=== PATIENT | female | born 1975 | race Caucasian/White ===

== ENCOUNTER 2021-09-04 22:33 | Emergency (ER) | payer MEDICAID, SELFPAY ==
[2021-09-04 22:34] VITALS: BP 145/91; PULSE 109; RESP 18; TEMP 36.4; O2SAT 97; BMI 37.3
--- NOTE | 2021-09-04 23:08 | EDS_ITS ---
HPI History of Present Illness Chief Complaint: Cold Sx Informant: patient Onset/Context/Timing Onset: Weeks (2 weeks) Current Severity: Mild Maximum Severity: Moderate Narrative Narrative: Patient presents secondary to sore throat and sinus congestion. She reports that she was diagnosed with Covid in early July. She is off quarantine. She states following this she developed significant sinus tenderness and she was taking Sudafed. She continues to have some sinus drainage and sore throat. No fever or chills currently. Mild cough with yellow sputum. [facility] Medical History (Updated 09/04/21 @ 23:[address] Tatianna Lynn MD) Asthma Diabetes mellitus, type II High cholesterol Home Medications amoxicillin-pot clavulanate [Augmentin] 1 tab PO BID #20 tab 09/04/21 [Rx Last Taken Unknown] fluconazole [Diflucan] 150 mg PO DAILY #1 tab 09/04/21 [Rx Last Taken Unknown] Allergy/AdvReac Type Severity Reaction Status Date / Time No Known Allergies Allergy Verified 09/04/21 23:26 Social History Smoking Status: Current every day smoker tobacco type: cigarettes ROS ROS ED Constitutional Constitutional ED: Denies chills or fever(s) Eyes Eyes: Denies change in vision ENT ENT ED: Reports sore throat and other Details: Sinus pressure Cardiovascular Cardiovascular: Denies chest pain Respiratory/Chest Respiratory/Chest: Reports cough; Denies dyspnea Gastrointestinal Gastrointestinal: Denies abdominal pain, diarrhea, nausea or vomiting Genitourinary Genitourinary ED: Denies dysuria Musculoskeletal Musculoskeletal: Denies back pain Integumentary Denies rash Neurologic Neurologic: Denies headache(s) or weakness Allergic/Immunologic Allergic/Immunologic ED: Denies urticaria EXAM Physical Exam Const Vital Signs: 09/04/21 22:34 09/04/21 23:27 Temperature 97.6 F L Temperature Source Temporal Pulse Rate 109 H Respiratory Rate 18 Respiratory Effort Normal Non-Labored Respiratory Pattern Normal Blood Pressure 145/91 H Blood Pressure Mean 109 Pulse Ox 97 Oxygen Delivery Method Room Air Positive well nourished and well developed General Appearance ED: well developed HEENT Reports normocephalic, head/scalp atraumatic and TM's clear HEENT Narrative: Bilateral maxillary sinus tenderness to palpation. Mild posterior pharyngeal drainage. Uvula midline. Tympanic Membrane ED: Yes TM's clear Eyes PERRL and EOMs intact bilaterally Neck supple Chest Wall inspection of chest normal and palpation of chest normal Resp normal respiratory effort and clear to auscultation bilaterally Cardio regular rate and regular rhythm GI normal to inspection, nondistended, normoactive bowel sounds Palpation: soft Back/Spine no CVA tenderness Extremity normal to inspection Neuro oriented x3 and no sensory deficits noted Sensorium / Orientation: alert Motor Exam: strength 5/5 throughout Psych mental status grossly normal Skin no rashes or lesions noted MDM MDM MDM Narrative Medical decision making narrative: With patient having 2 weeks of symptoms she will be treated with a course of Augmentin. She is given a single tab of Diflucan to take at the completion of her antibiotic course. She is new to the area and referred to Dr. Frank to establish primary care. Discharge Plan Triage Chief Complaint: Cold Sx ED Provider: Tatianna Lynn Dx/Rx/DC Orders Clinical Impression: Sinusitis Instructions: ED Sinusitis (Antibiotic Treatment) Prescriptions: New amoxicillin-pot clavulanate [Augmentin] 875-125 mg tablet 1 tab PO BID Qty: 20 RF: 0 fluconazole [Diflucan] 150 mg tablet 150 mg PO DAILY Qty: 1 RF: 0 Referrals: Shara Frank MD [STAFF PHYSICIAN] - As soon as possible Disposition Disposition: Home, Self Care Discharge Date/Time: 09/04/21 23:34
[2021-09-04] MEDS: Amox/Clavulanate 875 MG Tablet PO (23:23)
== END 2021-09-04 23:34 | disposition home or self-care (01) ==
LOC: ED 23:11
PROVIDERS: Emergency Provider Emergency Medicine
DX: J32.9 Chronic sinusitis, unspecified (principal); F17.210 Nicotine dependence, cigarettes, uncomplicated
CPT/HCPCS: 99283

== ENCOUNTER 2022-01-16 00:04 | Emergency (ER) | payer MEDICAID, SELFPAY ==
[2022-01-16 00:05] VITALS: BP 136/90; PULSE 98; RESP 18; TEMP 36.7; O2SAT 100; BMI 41.5
--- NOTE | 2022-01-16 00:27 | RAD_ITS ---
STUDY: X-RAY - RIGHT FOOT CLINICAL: Female, 46 years old. Injury TECHNIQUE: 3 view(s) of the foot. COMPARISON: None. FINDINGS: There is an Achilles and plantar spur. On the lateral view there is an indeterminant fractured fragment that is deep to the cuboid anterior to the calcaneus.. The visualized enthesopathy at the proximal aspect of the fifth metatarsal. There is an accessory ossicle adjacent to the cuboid Normal metatarsophalangeal joint of the great toe. There is minor irregularity of the right side first metatarsal sesamoid bone without significant adjacent edema. Normal interphalangeal joint of the great toe. Normal phalanges of the great toe. Normal second through fifth metatarsophalangeal joints. Normal interphalangeal joints and phalanges of the lesser toes. There is mild soft tissue edema. RAD/Foot min 3 Views IMPRESSION: On the lateral view there is a visualized 1.4 cm bone fragment with a lucency suggesting a fractured fragment. This may represent a fractured sensory ossicle, or potentially avulsion injury for which the donor is not visualized. In addition there is slight cortical irregularity of the sesamoid bone at the level of first metatarsal. Recommend correlation mechanism of injury and area of interest. Could consider follow-up study such as CT of the foot for further clarification. There is an Achilles and small plantar spur. Electronically Signed: Jillian Gilmore MD at 1:11 EST Reading Location ID and State: [facility] / [place] Tel , Service support ,
--- NOTE | 2022-01-16 00:27 | RAD_ITS ---
STUDY: X-RAY - RIGHT ANKLE REASON FOR EXAM: Female, 46 years old. Injury TECHNIQUE: 3 view(s) of the ankle. COMPARISON: None. FINDINGS: Normal visualized distal tibia and fibula. Normal medial and lateral malleoli. Normal tibiotalar articulation and ankle mortise. There is a visualized Achilles and plantar spur. There is phlebolith or venous calcification in the anterior aspect of the right lower extremity. There is minimal tendinopathy at the fifth metatarsal. The visualized subtalar, talonavicular, calcaneocuboid and tarsal articulations are normal. The soft tissue structures are unremarkable. RAD/Ankle min 3 Views IMPRESSION: Degenerative change. No visualized acute fracture. Electronically Signed: Jillian Gilmore MD at 1:03 EST Reading Location ID and State: [facility] / [place] Tel , Service support ,
[2022-01-16] MEDS: oxyCODONE 5 MG Tablet 10 MG PO (00:39)
--- NOTE | 2022-01-16 00:56 | EDS_ITS ---
HPI History of Present Illness Chief Complaint: Lower Extremity Injury Narrative Narrative: Patient is a 46-year-old female who states that she was walking to her sister's apartment to have dinner when she stepped on a piece of of asphalt/rock and rolled her right foot inward. She states that she started to fall but was able to catch herself and therefore did not fall complete to the ground or strike her head. She states she was unable to ambulate to her sister's apartment where they ate dinner but afterwards noticed that if she went to stand up she had acute pain in the top of her foot/ankle region making it difficult to ambulate. Therefore concern for possible fracture patient presents for evaluation [facility] Medical History Asthma Diabetes mellitus, type II High cholesterol Home Medications albuterol sulfate 90 mcg INHALATION Q4H PRN PRN 01/16/22 [History Last Taken Unknown] atorvastatin 40 mg PO DAILY 01/16/22 [History Last Taken Unknown] cholecalciferol (vitamin D3) [Vitamin D3] 2,000 unit PO DAILY 01/16/22 [History Last Taken Unknown] dulaglutide [Trulicity] 0.75 mg SUBCUT MO 01/16/22 [History Last Taken Unknown] glipizide 10 mg PO DAILY 01/16/22 [History Last Taken Unknown] metformin 2,000 mg PO DAILY 01/16/22 [History Last Taken Unknown] oxycodone-acetaminophen [Endocet] 1 tab PO Q6H PRN 3 Days #12 tab 01/16/22 [Rx Last Taken Unknown] Allergy/AdvReac Type Severity Reaction Status Date / Time No Known Allergies Allergy Verified 01/16/22 00:07 Social History Smoking Status: Current every day smoker tobacco type: cigarettes ROS ROS ED Constitutional Constitutional ED: Denies chills or fever(s) ENT ENT ED: Denies sore throat Cardiovascular Cardiovascular: Denies chest pain Respiratory/Chest Respiratory/Chest: Denies cough or dyspnea Gastrointestinal Gastrointestinal: Denies abdominal pain, diarrhea, nausea or vomiting Genitourinary Genitourinary ED: Denies dysuria Musculoskeletal Musculoskeletal: Reports arthralgias and other Details: Positive right foot/ankle pain ; Denies myalgias Integumentary Denies rash Neurologic Neurologic: Denies headache(s) Hematologic/Lymphatic Hematologic/Lymphatic: Denies easy bleeding or easy bruising EXAM Physical Exam Const Vital Signs: 01/16/22 00:05 Temperature 98.0 F Temperature Source Temporal Pulse Rate 98 Respiratory Rate 18 Blood Pressure 136/90 H Blood Pressure Mean 105 Pulse Ox 100 Oxygen Delivery Method Room Air Positive well nourished, well developed and obese General Appearance ED: well developed Nutritional Appearance: obese Eyes PERRL and EOMs intact bilaterally Neck supple Resp normal respiratory effort and clear to auscultation bilaterally Cardio regular rate and regular rhythm Extremity Extremity Narrative: There is mild soft tissue swelling to the dorsum aspect of the right foot when compared to left but no obvious abrasions or ecchymosis. Ankle ligaments are stable and the Achilles tendon is intact. There is no obvious bony deformity or joint effusion. There is increased pain with passive and active dorsiflexion of the foot. No subungual hematoma noted. Otherwise exam is normal Neuro oriented x3 and CN's II-XII intact bilaterally Sensorium / Orientation: alert Psych mental status grossly normal Skin no rashes or lesions noted MDM MDM MDM Narrative Medical decision making narrative: Patient presented to the ER in no acute distress and reported mechanical fall so there is no need for cardiac or syncope work-up. Exam did not show obvious bony deformity or joint effusion or signs of ligamentous or tendon injury. However with the report of fall and pain I did elect to perform x-rays. X-ray does show a possible avulsion fracture which would correlate with the patient performing a reported inversion and plantar flexion motion of her foot/ankle prior to the injury. Therefore at this time with that report we will place her in a walking boot for comfort and stabil ization and she will be discharged home with pain medication and can follow-up with podiatry to discuss further evaluation and treatment options. Radiography Diagnostic Testing: Clinical Impression(s) from Imaging Studies Ankle X-Ray 01/16/22 00:27 IMPRESSION: Degenerative change. No visualized acute fracture. Electronically Signed: Jillian Gilmore MD at 1:03 EST Reading Location ID and State: [facility] / [place] Tel , Service support , ADDENDUM: 01/16/22 0114 Foot X-Ray 01/16/22 00:27 IMPRESSION: On the lateral view there is a visualized 1.4 cm bone fragment with a lucency suggesting a fractured fragment. This may represent a fractured sensory ossicle, or potentially avulsion injury for which the donor is not visualized. In addition there is slight cortical irregularity of the sesamoid bone at the level of first metatarsal. Recommend correlation mechanism of injury and area of interest. Could consider follow-up study such as CT of the foot for further clarification. There is an Achilles and small plantar spur. Electronically Signed: Jillian Gilmore MD at 1:11 EST , Discharge Plan Triage Chief Complaint: Lower Extremity Injury ED Provider: Devin Evans Dx/Rx/DC Orders Clinical Impression: Avulsion fracture, Foot sprain Instructions: ED Fracture, Foot, ED Foot Sprain Prescriptions: New oxycodone-acetaminophen [Endocet] 5-325 mg tablet 1 tab PO Q6H PRN (Reason: pain) 3 Days Qty: 12 RF: 0 No Action atorvastatin 40 mg tablet 40 mg PO DAILY RF: 0 glipizide 10 mg tablet extended release 24hr 10 mg PO DAILY RF: 0 albuterol sulfate 90 mcg/actuation HFA aerosol inhaler 90 mcg INHALATION Q4H PRN PRN (Reason: Shortness Of Breath) RF: 0 metformin 500 mg tablet extended release 24 hr 2,000 mg PO DAILY RF: 0 cholecalciferol (vitamin D3) [Vitamin D3] 50 mcg (2,000 unit) tablet 2,000 unit PO DAILY RF: 0 Trulicity 0.75 mg/0.5 mL pen injector 0.75 mg SUBCUT MO RF: 0 Stand Alone Forms: ED Work / School Excuse Referrals: Yadi Orozco DPM [STAFF PHYSICIAN] - 1 Week Activity Restrictions/Additional Instructions: Please wear your walking boot for stabilization and to help reduce pain and follow-up with podiatry for further evaluation Disposition Disposition: Home, Self Care
[2022-01-16 01:42] VITALS: BP 138/80; PULSE 76; RESP 16
== END 2022-01-16 02:15 | disposition home or self-care (01) ==
PROVIDERS: Emergency Provider Emergency Medicine; Visit Provider Emergency Medicine
DX: S92.901A Unspecified fracture of right foot, initial encounter for closed fracture (principal); E11.9 Type 2 diabetes mellitus without complications; E78.00 Pure hypercholesterolemia, unspecified; F17.210 Nicotine dependence, cigarettes, uncomplicated; E66.9 Obesity, unspecified; J45.909 Unspecified asthma, uncomplicated; W19.XXXA Unspecified fall, initial encounter; Z79.84 Long term (current) use of oral hypoglycemic drugs; Z79.899 Other long term (current) drug therapy
CPT/HCPCS: 73610; 73630; 99283

== ENCOUNTER 2022-02-04 16:16 | Outpatient (CLI) | payer MEDICAID, SELFPAY ==
--- NOTE | 2022-02-04 16:21 | CT_ITS ---
STUDY: CT RIGHT FOOT REASON FOR EXAM: Female, 46 years old. R/O FX RADIATION DOSAGE (If Supplied By Facility): CTDIvol = ( 19.84 ) mGy, DLP = ( 511.94 ) mGycm TECHNIQUE: Thin section transaxial imaging of the foot was obtained, with sagittal and coronal reconstructed images. Individualized dose optimization techniques were used for this CT. COMPARISON: Right foot radiograph from 08/16/2022. FINDINGS: No acute fracture or dislocation. Joint spaces are intact. Minimal plantar calcaneal spurring. Enthesopathic changes along the Achilles insertion site. No destructive osseous lesions. Soft tissues are unremarkable. No radiopaque foreign bodies. CT/Extremity Lower without Contra IMPRESSION: No acute findings in the right foot. Electronically Signed: Kiko Ingram, at 12:55 EDT ,
== END 2022-02-04 23:59 | disposition home or self-care (01) ==
LOC: CT 16:21
PROVIDERS: Referring Provider Student in an Organized Health Care Education/Training Program; Visit Provider Student in an Organized Health Care Education/Training Program
DX: S93.601A Unspecified sprain of right foot, initial encounter (principal)
CPT/HCPCS: 73700

== ENCOUNTER 2023-04-28 19:09 | Emergency (ER) | payer MEDICAID, SELFPAY ==
[2023-04-28 19:09] VITALS: BP 184/93; PULSE 118; RESP 16; TEMP 36.2; O2SAT 97; BMI 38.8
--- NOTE | 2023-04-28 19:35 | RAD_ITS ---
INDICATION: Injury/Pain EXAMINATION/TECHNIQUE: X-RAY - RIGHT XR Shoulder 4 VIEWS COMPARISON: FINDINGS: SOFT TISSUES: No soft tissue swelling or gas. No radiopaque foreign body. BONES/JOINTS: No acute fracture or subluxation.. Normal alignment. Preservation of the joint space.. No sclerotic or destructive changes observed. RAD/Shoulder min 2 Views IMPRESSION: Negative. Electronically Signed: Phi Moreira DO at 20:22 EDT ,
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
[2023-04-28] MEDS: HYDROcodone Bitartrate/Apap 5/325 Tablet PO (20:13)
== END 2023-04-28 20:19 | disposition home or self-care (01) ==
PROVIDERS: Emergency Provider Emergency Medicine; PCP Nurse Practitioner Family; Visit Provider Emergency Medicine
DX: S46.911A Strain of unspecified muscle, fascia and tendon at shoulder and upper arm level, right arm, initial encounter (principal); E11.9 Type 2 diabetes mellitus without complications; R00.0 Tachycardia, unspecified; E78.00 Pure hypercholesterolemia, unspecified; F17.210 Nicotine dependence, cigarettes, uncomplicated; E66.9 Obesity, unspecified; J45.909 Unspecified asthma, uncomplicated; Z79.899 Other long term (current) drug therapy; Z79.84 Long term (current) use of oral hypoglycemic drugs; V89.2XXA Person injured in unspecified motor-vehicle accident, traffic, initial encounter
CPT/HCPCS: 73030; 99283

== ENCOUNTER → 2023-10-26 | Outpatient (CLI) | payer MEDICAID, SELFPAY ==
--- NOTE | 2023-10-26 17:03 | CT_ITS ---
STUDY: CT ABDOMEN AND PELVIS WITH CONTRAST REASON FOR EXAM: Female, 48 years old. UNSPECIFIED OVARIAN CYST RADIATION DOSAGE (If Supplied By Facility): CTDIvol = ( 15.41 ) mGy, DLP = ( 1213.82 ) mGycm TECHNIQUE: Transaxial images were obtained from the dome of the diaphragm to the symphysis pubis with oral contrast. Oral and amp; IV Readi-CAT and amp; 100mL Isovue-370 was administered. Sagittal and coronal images were reconstructed. Individualized dose optimization techniques were used for this CT. COMPARISON: None. FINDINGS: The visualized lung bases are unremarkable. The visualized portions of the heart are within normal limits. There is decreased attenuation of the liver consistent with steatosis. Small gallstones seen along the dependent portion of the gallbladder lumen. Normal spleen. Normal pancreas. Normal bilateral adrenal glands. Normal right kidney. Normal left kidney. There is a small hiatal hernia. Normal small intestine. Normal colon. The appendix is visualized and appears normal. Normal abdominal aorta. Normal inferior vena cava. There is a small retroperitoneal lymphadenopathy with enlarged nodes no greater than 10mm in the short axis diameter. Normal urinary bladder. There is a 6.8 cm x 3.9 cm septated cyst in the left adnexa. There is also evidence of a 4.5 cm x 3.5 cm cyst in the right adnexa. Correlation with ultrasound is recommended. There is a small umbilical hernia containing fat. There are diffuse degenerative changes of the visualized lumbar spine. CT/Abdomen/Pelvis WITH Contrast IMPRESSION: Bilateral ovarian cysts more prominent on the left side. Correlation with ultrasound is recommended. Fatty infiltration of the liver. Electronically Signed: Juan Walker MD at 14:41 EST ,
[2023-10-26 17:31] LABS: CREATININE FINGERSTICK < 1.0 mg/dL (0.55-1.02); EGFR FINGERSTICK > 60.0000 mL/min (>60)
== END | disposition home or self-care (01) ==
LOC: CT 17:00
PROVIDERS: PCP Nurse Practitioner Family; Referring Provider Nurse Practitioner Family; Visit Provider Nurse Practitioner Family
DX: N83.209 Unspecified ovarian cyst, unspecified side (principal); R10.2 Pelvic and perineal pain
CPT/HCPCS: 74177; Q9967

== ENCOUNTER → 2024-10-17 | Outpatient (CLI) | payer MEDICAID, SELFPAY ==
[2024-10-17 17:48] LABS: Hematocrit 41.4 % (37-47); Hemoglobin 13.2 g/dL (12.0-15.0); Mean Corp Hgb Conc 31.9 g/dL (32-36); Mean Corpuscular Hgb 27.6 pg (27.0-32.0); Mean Corpuscular Volume 86.6 fL (81-99); Mean Platelet Vol. 10.5 fl (6.2-12.0); Platelet Count 252 K/mm3 (150-450); RBC Distribution Width CV 15.2 % (11.6-14.6); RBC Distribution Width SD 47.9 fl (35.1-43.9); Red Blood Count 4.78 M/mm3 (4.2-5.4); White Blood Count 10.9 K/mm3 (4.4-11.0)
[2024-10-17 18:34] LABS: ALB/GLOB Ratio 0.9 RATIO (0.9-2.4); AST(SGOT) 59 U/L (15-37); Alanine Aminotransfer ALT/SGPT 43 U/L (13-56); Albumin, Serum 3.3 g/dL (3.2-5.0); Alkaline Phosphatase 103 U/L (45-117); Anion Gap 8 (5-15); BUN 10 mg/dL (7-18); BUN/Creat Ratio 16.8 RATIO (10-20); Calcium,Total 8.7 mg/dL (8.5-10.1); Chloride 108 mmol/L (98-107); Cholesterol 124 mg/dL (200); EST Glomerular Filtration Rate 115 mL/min (>60); Est Glom Filt Rate - Afr Amer 139 mL/min (>60); Globulin 3.7 g/dL (2.2-4.2); Glucose 231 mg/dL (74-106); High Density Lipoprotein 27 mg/dL; Potassium 3.5 mmol/L (3.5-5.1); Sodium Level 139 mmol/L (136-145); Triglycerides 327 mg/dL; Very Low Density Lipoprotein 65 mg/dL (5-40)
== END | disposition home or self-care (01) ==
LOC: VSLAB 16:23
PROVIDERS: PCP Nurse Practitioner Family; Visit Provider Nurse Practitioner Family
DX: E11.9 Type 2 diabetes mellitus without complications (principal); E78.5 Hyperlipidemia, unspecified; R03.0 Elevated blood-pressure reading, without diagnosis of hypertension
CPT/HCPCS: 36415; 80053; 80061; 82043; 84443; 85027

== ENCOUNTER 2025-05-29 18:56 | Emergency (ER) | payer MEDICAID, SELFPAY ==
[2025-05-29 18:56] VITALS: BP 194/108; PULSE 115; RESP 22; TEMP 36.8; O2SAT 98; BMI 38.7
--- NOTE | 2025-05-29 20:01 | ED.VIS.DENTA ---
HPI History of Present Illness Chief Complaint: Dental Narrative Narrative: Chief complaint and HPI: 49-year-old female with past medical history of poor dentition, DM2, HLD presents for evaluation of dental pain. Patient states for the past several weeks she has been having intermittent dental pain in her left lower tooth and right upper tooth. She states that they are chipped and need root canals. She states today the pain reoccurred and is severe. She took 800 mg ibuprofen prior to arrival. She states th pain on the left side radiates into her ear. She denies any fever, chills, shortness of breath, chest pain, difficulty swallowing. Review of systems: See HPI Medications: As listed on the chart Allergies: As listed on the chart PFSH: Per chart Vital signs: As listed on the chart. Reviewed. Physical exam: Gen: A&O x3, NAD Head: Normocephalic, atraumatic Eyes: No sclera icterus, conjunctiva clear, PERRL, EOMI ENT: TMs clear BL, moist mucous membranes, posterior oropharynx unremarkable, uvula midline, tonsils not enlarged, patient has poor dentition with multiple missing teeth, multiple broken teeth, the 2 teeth that she is endorsing pain and are both chipped with cavities. No dental abscess. No gingivitis. Gums are not on swollen or tender. No submandibular swelling. No Mahesh angina. Tolerating secretions. Neck: Trachea midline, No JVD, Full ROM, No meningismus CV: Tachycardic, regular rate, no murmurs, no peripheral edema Resp: Lungs CTA BL, no w/r/c, no stridor Skin: Warm, dry, no rash Neuro: Alert, oriented, grossly intact, sensation intact Psych: Cooperative, appropriate mood and affect [facility] Medical History Asthma Diabetes mellitus, type II High cholesterol Home Medications ?Medication ?Instructions ?Recorded ?Last Taken ?Type albuterol sulfate 90 mcg/actuation 90 mcg inhalation Q4H PRN PRN 01/16/22 Unknown History aerosol inhaler Shortness Of Breath atorvastatin 40 mg tablet 40 mg PO DAILY 01/16/22 Unknown History cholecalciferol (vitamin D3) 50 2,000 unit PO DAILY 01/16/22 Unknown History mcg (2,000 unit) tablet (Vitamin D3) glipizide 10 mg tablet, extended 10 mg PO DAILY 01/16/22 Unknown History release 24 hr metformin 500 mg tablet,extended 1,000 mg PO BID 01/16/22 Unknown History release 24 hr tirzepatide 7.5 mg/0.5 mL 7.5 mg subcut QWEEK 05/29/25 Unknown History subcutaneous pen injector (Mounjaro) Allergy/AdvReac Type Severity Reaction Status Date / Time No Known Allergies Allergy Verified 05/29/25 18:58 Social History (Updated 04/28/23 @ 20:[address] Hugo Donis MD) household members: none Smoking Status: Current every day smoker tobacco type: cigarettes EXAM Physical Exam Const Vital Signs: 05/29/25 18:56 Temperature 98.3 F Temperature Source Axillary Pulse Rate 115 H Respiratory Rate 22 H Blood Pressure 194/108 H Blood Pressure Mean 136 Pulse Ox 98 MDM MDM MDM Narrative Medical decision making narrative: 49-year-old female with past medical history of poor dentition, DM2, HLD presents for evaluation of dental pain. Patient states for the past several weeks she has been having intermittent dental pain in her left lower tooth and right upper tooth. She states that they are chipped and need root canals. She states today the pain reoccurred and is severe. She took 800 mg ibuprofen prior to arrival. See physical exam findings. Patient has poor dentition with multiple broken teeth and cavities. The teeth she endorses pain and are both chipped with cavities. No dental abscess. Gingivitis, swollen or tender gums. No Mahesh angina. Suspect patient's pain is secondary to dental caries. However cannot rule out early infection. Patient will be placed on Augmentin for possible early infection, will give first dose here. She will give a one-time Percocet for pain. She was told to follow-up with her dentist. She was also given dental clinics. Return precautions explained. Recommended ice for swelling. Recommended Orajel. Ibuprofen and Tylenol for pain. Patient is hypertensive here in the emergency department and tachycardia however I do believe this is secondary to her pain. No further workup needed at this time. She needs to follow-up with PCP for possible hypertension. Patient stable to discharge home. Impression: 1. Dental pain 2. Chronic fractured teeth with dental caries Discharge Plan Triage Chief Complaint: Dental ED Provider: Aleksandr Guo Dx/Rx/DC Orders Prescriptions: No Action atorvastatin 40 mg tablet 40 mg PO DAILY glipizide 10 mg tablet extended release 24hr 10 mg PO DAILY albuterol sulfate 90 mcg/actuation HFA aerosol inhaler 90 mcg INHALATION Q4H PRN PRN (Reason: Shortness Of Breath) metformin 500 mg tablet extended release 24 hr 1,000 mg PO BID cholecalciferol (vitamin D3) [Vitamin D3] 50 mcg (2,000 unit) tablet 2,000 unit PO DAILY Mounjaro 7.5 mg/0.5 mL pen injector 7.5 mg SUBCUT QWEEK Patient Comments: MONDAYS Primary Care Provider: Annita Vines Referrals: Annita Vines, [facility] [Primary Care Provider] - Print Language: [place]i
[2025-05-29] MEDS: HYDROcodone Bitartrate/Apap 5/325 Tablet PO (20:06)
[2025-05-29 20:07] VITALS: BP 170/93; PULSE 107; RESP 18; TEMP 36.9; O2SAT 98
== END 2025-05-29 20:13 | disposition home or self-care (01) ==
PROVIDERS: Emergency Provider Surgery; PCP Nurse Practitioner Family; Visit Provider Surgery
DX: S02.5XXA Fracture of tooth (traumatic), initial encounter for closed fracture (principal); E11.9 Type 2 diabetes mellitus without complications; K02.9 Dental caries, unspecified; X58.XXXA Exposure to other specified factors, initial encounter; E78.00 Pure hypercholesterolemia, unspecified; J45.909 Unspecified asthma, uncomplicated; F17.210 Nicotine dependence, cigarettes, uncomplicated; Z79.84 Long term (current) use of oral hypoglycemic drugs; Z79.85 Long-term (current) use of injectable non-insulin antidiabetic drugs; Z79.899 Other long term (current) drug therapy
CPT/HCPCS: 99283

== ENCOUNTER → 2025-06-12 | Outpatient (CLI) | payer MEDICAID, SELFPAY ==
[2025-06-12 16:36] LABS: Hematocrit 44.5 % (37-47); Hemoglobin 14.2 g/dL (12.0-15.0); Immature Granulocytes Count 0.040 X10^3/uL (0.0-0.0); Mean Corp Hgb Conc 31.9 g/dL (32-36); Mean Corpuscular Volume 84.1 fL (81-99); Mean Platelet Vol. 10.3 fl (6.2-12.0); NRBC Flagged by Analyzer 0 % (0-5); Platelet Count 238 K/mm3 (150-450); RBC Distribution Width CV 15.2 % (11.6-14.6); RBC Distribution Width SD 45.7 fl (35.1-43.9); Red Blood Count 5.29 M/mm3 (4.2-5.4); White Blood Count 10.6 K/mm3 (4.4-11.0)
[2025-06-12 17:34] LABS: AST(SGOT) 77 U/L (<=31); Alanine Aminotransfer ALT/SGPT 58 U/L (<=34); Albumin, Serum 4.1 g/dL (3.5-5.0); Alkaline Phosphatase 109 U/L (35-104); Anion Gap 14 (5-15); BUN 12 mg/dL (4-19); BUN/Creat Ratio 21.2 RATIO (10-20); Calcium,Total 9.6 mg/dL (7.6-11.0); Carbon Dioxide 21.4 mmol/L (21.0-32.0); Chloride 102 mmol/L (98-108); Globulin 3.3 g/dL (2.2-4.2); Glucose 213 mg/dL (70-99); Potassium 4.0 mmol/L (3.3-5.1)
[2025-06-12 17:46] LABS: Microalbumin,Random Urine 1522.0 mg/L (<20 mg/L)
== END | disposition home or self-care (01) ==
LOC: VSLAB 15:05
PROVIDERS: PCP Nurse Practitioner Family; Visit Provider Nurse Practitioner Family
DX: E11.9 Type 2 diabetes mellitus without complications (principal)
CPT/HCPCS: 36415; 80053; 82043; 84443; 85025

== ENCOUNTER → 2025-09-13 | Outpatient (CLI) | payer MEDICAID, SELFPAY ==
[2025-09-13 19:14] LABS: T4 Total, Thyroxin 8.2 ug/dL (4.8-13.9)
== END | disposition home or self-care (01) ==
LOC: VSLAB 14:44
PROVIDERS: PCP Nurse Practitioner Family
DX: R94.6 Abnormal results of thyroid function studies (principal)
CPT/HCPCS: 36415; 84436; 84439; 84443; 86376; 86800